=== PATIENT | male | born 1950 | race Caucasian/White ===

== ENCOUNTER 2016-11-16 07:13 | Inpatient (IN) | payer OTHER, MEDICARE ==
[2016-11-16] VITALS (24 sets, daily range): BP systolic 84–140; BP diastolic 55–88; PULSE 128–169; RESP 16–45; TEMP 97.8–98.8; O2SAT 75–98
[~2016-11-16] VITALS: Ht 175.3 cm; Wt 53.4 kg
[~2016-11-16 07:13] MED LIST: ALBU6.7H INH; ASMA220A IN; CHEMO MEDS; FOLI1 PO; LOSA50 PO; OXYC5 PO; PARO10TA
[2016-11-16] MEDS ORDERED: SODIUM CHLOR 0.9% 1000 ML INJ 1,000 ML IV ONE (07:35)
--- NOTE | 2016-11-16 07:43 | PD ---
HPI Chief Complaint: GI Complaint Time Seen by Provider: 07:35 Travel History International Travel<30 days: No Contact w/Intl Traveler<30days: No Traveled to known affect area: No History of Present Illness HPI This is a 66-year-old gentleman with a history of pancreatic cancer, COPD, who presents today via EMS with coffee-ground emesis times several episodes over the last 12 hours. The patient also reports abdominal pain. He states that he started feeling nauseous with the pain and shortly thereafter started vomiting black coffee-ground emesis. He denies any black tarry stools. He does report he has a history of previous peptic ulcer. He's been treated with chemotherapy and radiation to her before his pancreatic cancer. His oncologist is Dr. Bigg Kelly. The patient also reports cough. He denies any fevers, chills. He does report feeling nauseous still and feeling urge to belch. PFSH Past Medical History Depression: Yes Cancer: Yes (SKIN, PANCREATIC ) Cardiovascular Problems: Yes (HTN) Chemotherapy: Yes COPD: Yes Diabetes: No Diminished Hearing: No Hypertension: Yes Implanted Vascular Access Dvce: No Respiratory: Yes Radiation Therapy: Yes Tetanus Vaccination: < 5 Years Influenza Vaccination: No Past Surgical History Surgical History: No Previous Surgery Abdominal Surgery: Yes (HERNIA REPAIR) Cardiac Surgery: No Neurologic Surgery: No Pacemaker: No Thoracic Surgery: No Tonsillectomy: Yes Other Surgery: Yes (SKIN CA REMOVED) Social History Alcohol Use: No Tobacco Use: Yes (1PPD) Substance Use: No Allergies-Medications (Allergen,Severity, Reaction): Coded Allergies: No Known Allergies (Verified , 11/16/16) Reported Meds & Prescriptions Reported Meds & Active Scripts Active Reported Paxil (Paroxetine HCl) Unknown Strength Tab 1 Tab PO DAILY Roxicodone (Oxycodone HCl) 5 Mg Tab 5 Mg PO Q6H PRN Asmanex 120 Act Twisthaler (Mometasone 120 Act Inh) 220 Mcg/Act Inh 1 Puff INH BID Losartan (Losartan Potassium) 50 Mg Tab 50 Mg PO DAILY Folate (Folic Acid) 1 Mg Tab 1 Mg PO DAILY Proventil Hfa 6.7 GM Inh (Albuterol Sulfate) 90 Mcg/Act Aer 1-2 Puff INH Q4H PRN [Iv Chemo Meds] Review of Systems Except as stated in HPI: all other systems reviewed are Neg General / Constitutional: No: Fever, Chills HENT: No: Lightheadedness Cardiovascular: No: Chest Pain or Discomfort, Palpitations Respiratory: Positive: Cough, Shortness of Breath Gastrointestinal: Positive: Nausea, Vomiting (chronic), Abdominal Pain ( epigastric), Hematemesis (coffee-ground emesis) Genitourinary: No: Decreased Urinary Output Musculoskeletal: Positive: Weakness (Katarzyna) Neurologic: Positive: Weakness (generalized), No: Headache, Change in Mentation Psychiatric: Positive: Other (history of PTSD) Physical Exam Narrative GENERAL: Thin cachectic ill appearing gentleman in no acute respiratory distress SKIN: Warm and dry. HEAD: Atraumatic. Normocephalic. EYES: No scleral icterus. No injection or drainage. ENT: No nasal bleeding or discharge. Dry and pale this membranes. NECK: Trachea midline. Supple CARDIOVASCULAR: Tachycardic with a rate in the 130s. No obvious murmur appreciated. RESPIRATORY: Poor inspiratory effort with rhonchi appreciated in the upper airways. GASTROINTESTINAL: Abdomen soft, thin, cachectic with tenderness in the epigastric area. There was mild voluntary guarding with no rebound. MUSCULOSKELETAL: No obvious deformities. No edema NEUROLOGICAL: Awake and alert. No obvious cranial nerve deficits. Motor grossly within normal limits. Normal speech. Data Data Last Documented VS Vital Signs Date Time Temp Pulse Resp B/P Pulse Ox O2 Delivery O2 Flow Rate FiO2 11/16/16 09:50 97.8 138 109/78 85 Nasal Cannula 2 11/16/16 09:46 18 Orders Electrocardiogram (11/16/16 ) Complete Blood Count With Diff (11/16/16 07:35) Comprehensive Metabolic Panel (11/16/16 07:35) Urinalysis - C+S If Indicated (11/16/16 07:35) Lipase (11/16/16 07:35) Iv Access Insert/Monitor (11/16/16 07:35) Ecg Monitoring (11/16/16 07:35) Oximetry (11/16/16 07:35) Ondansetron Inj (Zofran Inj) (11/16/16 07:45) Pantoprazole Inj (Protonix Inj) (11/16/16 07:45) Sodium Chlor 0.9% 1000 Ml Inj (Ns 1000 M (11/16/16 07:35) Sodium Chloride 0.9% Flush (Ns Flush) (11/16/16 07:45) Abdomen, Upright Only (11/16/16 07:35) Chest, Single Ap (11/16/16 07:35) Hydromorphone Pf Inj (Dilaudid Pf Inj) (11/16/16 07:45) Insert Ng Tube (11/16/16 07:35) Type And Screen (11/16/16 07:44) Red Blood Cells (Rbc) (11/16/16 07:44) Admit Order (Ed Use Only) (11/16/16 09:57) Blood Product Administration .UPON TRANSFUSION (11/16/16 09:59) Labs Laboratory Tests Test 11/16/16 07:25 White Blood Count 5.6 TH/MM3 Red Blood Count 2.78 MIL/MM3 Hemoglobin 8.8 GM/DL Hematocrit 26.4 % Mean Corpuscular Volume 94.7 FL Mean Corpuscular Hemoglobin 31.6 PG Mean Corpuscular Hemoglobin 33.4 % Concent Red Cell Distribution Width 18.5 % Platelet Count 199 TH/MM3 Mean Platelet Volume 9.5 FL Neutrophils (%) (Auto) 90.5 % Lymphocytes (%) (Auto) 3.0 % Monocytes (%) (Auto) 6.1 % Eosinophils (%) (Auto) 0.0 % Basophils (%) (Auto) 0.4 % Neutrophils # (Auto) 5.1 TH/MM3 Lymphocytes # (Auto) 0.2 TH/MM3 Monocytes # (Auto) 0.3 TH/MM3 Eosinophils # (Auto) 0.0 TH/MM3 Basophils # (Auto) 0.0 TH/MM3 CBC Comment DIFF FINAL Differential Comment Sodium Level 139 MEQ/L Potassium Level 4.1 MEQ/L Chloride Level 95 MEQ/L Carbon Dioxide Level 33.4 MEQ/L Anion Gap 11 MEQ/L Blood Urea Nitrogen 34 MG/DL Creatinine 1.10 MG/DL Estimat Glomerular Filtration 67 ML/MIN Rate Random Glucose 185 MG/DL Calcium Level 8.2 MG/DL Total Bilirubin 0.8 MG/DL Aspartate Amino Transf 17 U/L (AST/SGOT) Alanine Aminotransferase 15 U/L (ALT/SGPT) Alkaline Phosphatase 129 U/L Total Protein 5.5 GM/DL Albumin 2.5 GM/DL Lipase 20 U/L Blood Type A POSITIVE Antibody Screen NEGATIVE Crossmatch Leukocyte-Reduced Red Blood Cells Blood Bank Comment MDM Medical Decision Making Medical Screen Exam Complete: Yes Emergency Medical Condition: Yes Differential Diagnosis Peptic ulcer versus pancreatic erosion into the stomach versus esophageal varices Narrative Course 66-year-old gentleman with history of pancreatic cancer, presents via EMS with coffee-ground emesis. The patient has had multiple episodes of vomiting with coffee-ground emesis. The patient appears pale and ill appearing. He will was 8.8. Patient has been typed and crossed for 2 units. We have started transfusing the blood. The patient be admitted to the resident service. He has been given Protonix 40 mg I V times one dose. Diagnosis Primary Impression: Upper GI bleed Additional Impressions: Anemia Pancreatic cancer Constantine Mcbride MD Nov 16, 2016 07:43
[2016-11-16] MEDS ORDERED: SODIUM CHLORIDE 0.9% FLUSH 5 ML FLUSH IVF PRN (07:45)
[2016-11-16] MEDS ORDERED: ONDANSETRON HCL 4 MG/2 ML VIAL IVP ONE (07:45)
[2016-11-16] MEDS ORDERED: PANTOPRAZOLE SODIUM 40 MG VIAL IVP ONE (07:45)
[2016-11-16] MEDS ORDERED: HYDROmorphone HCL PF 1 MG/ML VIAL IVS ONE (07:45)
[2016-11-16 08:02] LABS: AUTOMATED NEUTROPHIL # 5.1 TH/MM3 (1.8-7.7); BASOPHIL % 0.4 % (0.0-2.0); HEMATOCRIT 26.4 % (39.0-51.0); HEMO FLAGS DIFF FINAL; LYMPHOCYTE # 0.2 TH/MM3 (1.0-4.8); MEAN CELL VOLUME 94.7 FL (80.0-100.0); MEAN CORPUSCULAR HEMOGLOBIN 31.6 PG (27.0-34.0); MEAN CORPUSCULAR HGB CONC 33.4 % (32.0-36.0); MONO % 6.1 % (0.0-8.0); NEUT % 90.5 % (16.0-70.0); PLATELET COUNT 199 TH/MM3 (150-450); RED BLOOD COUNT 2.78 MIL/MM3 (4.50-5.90); RED CELL DISTRIBUTION WIDTH 18.5 % (11.6-17.2); WHITE BLOOD COUNT 5.6 TH/MM3 (4.0-11.0)
[2016-11-16 08:21] LABS: ALT (GPT) 15 U/L (12-78); ANION GAP 11 MEQ/L (5-15); AST (GOT) 17 U/L (15-37); BICARBONATE 33.4 MEQ/L (21.0-32.0); BLOOD UREA NITROGEN 34 MG/DL (7-18); CHLORIDE 95 MEQ/L (98-107); GLOMERULAR FILTRATION RATE 67 ML/MIN (>89); POTASSIUM 4.1 MEQ/L (3.5-5.1); SODIUM (NA) 139 MEQ/L (136-145)
[2016-11-16 08:23] LABS: ALKALINE PHOSPHATASE 129 U/L (45-117); TOTAL BILIRUBIN ADULT 0.8 MG/DL (0.2-1.0)
--- NOTE | 2016-11-16 08:42 | RADRPT ---
EXAM DATE/TIME: 11/16/2016 08:03 [facility] COMPARISON: CHEST SINGLE AP, July 02, 2015, 14:24. INDICATIONS : Cough MEDICAL HISTORY : Chronic obstructive pulmonary disease. SURGICAL HISTORY : None. ENCOUNTER: Initial ACUITY: >1 year PAIN SCORE: 3/10 LOCATION: Bilateral chest FINDINGS: Single AP view of the chest. The lungs are clear. Cardiomediastinal silhouette within normal limits. No evidence of pleural effusion or pneumothorax. CONCLUSION: No acute cardiopulmonary disease identified. Sae Griffith MD on November 16, 2016 at 8:39 Board Certified Radiologist. This report was verified electronically.
--- NOTE | 2016-11-16 08:51 | RADRPT ---
EXAM DATE/TIME: 11/16/2016 08:05 [facility] COMPARISON: CHEST SINGLE AP, November 16, 2016, 8:03. INDICATIONS : Cough MEDICAL HISTORY : Chronic obstructive pulmonary disease. SURGICAL HISTORY : None. ENCOUNTER: Initial ACUITY: >1 year PAIN SCORE: 0/10 LOCATION: Abdomen FINDINGS: A single erect view of the abdomen demonstrates the lower lungs to be clear. No evidence of free int raperitoneal gas. The visualized bowel loops are unremarkable. CONCLUSION: No evidence of free air. Sae Griffith MD on November 16, 2016 at 8:49 Board Certified Radiologist. This report was verified electronically.
[2016-11-16] MEDS ORDERED: OXYC1TAB13 PO (09:01)
[2016-11-16] MEDS ORDERED: FOLI1TAB4 PO (09:01)
[2016-11-16] MEDS ORDERED: LOSA50TA PO (09:01)
[2016-11-16] MEDS ORDERED: ALBU6.7H INH (09:01)
[2016-11-16] MEDS ORDERED: ASMA220A INH (09:01)
[2016-11-16] MEDS ORDERED: PAXI10TA2 PO (09:01)
--- NOTE | 2016-11-16 10:21 | HHI.HP ---
[facility] Service Family Medicine [facility] Diagnosis upper gi bleed, pancreatic cancer, anemia Diagnoses: International Travel<30 Days: No Contact w/Intl Traveler<30days: No Known Affected Area: No History of Present Illness Mr. Ramsey is a 66 y/o CM with a PMHx of stage 4 pancreatic cancer, COPD, GERD and PTSD presenting to the ER with bloody vomiting. He is accompanied by his and daughter who assists with history. Over the last 2 weeks patient has had intermittent episodes of nausea and vomiting. Over the last week his emesis started to have a blood tinge and grainier consistency. Over the last 24 hours he's had more than 6 episodes of bloody vomiting which prompted his visit to the ER. He has had upper right quadrant ABD since his diagnosis of pancreatic cancer, however over the last few weeks he believes that his pain has been much worse. At home he takes Roxicodone and uses a fentanyl patch with instructions from his oncologist, Dr. Kelly, to double the Roxicodone dose with increasing pain. Unfortunately since doubling his Roxicodone dose his pain has not been alleviated. He was diagnosed with stage 4 pancreatic cancer in 2014. He completed 28 radiation treatments over a year ago with continued chemotherapy. His last chemotherapy treatment was approximately 3 weeks ago, but currently is not receiving treatment. His only other complaints over this timeframe are subjective fevers and chills. Of note, hospice was recommended last week, however the patient and his family decided against it went to hold he would not receive a blood transfusion on their service. Currently he has no other complaints and denies any shortness of breath, chest pain, diarrhea, or calf tenderness. Review of Systems Constitutional: COMPLAINS OF: Fever (subjective), Chills Endocrine: DENIES: Polyuria Eyes: DENIES: Blurred vision Ears, nose, mouth, throat: COMPLAINS OF: Throat pain, DENIES: Running Nose Respiratory: COMPLAINS OF: Shortness of breath, DENIES: Cough Cardiovascular: DENIES: Chest pain Gastrointestinal: COMPLAINS OF: Abdominal pain, Nausea, Vomiting, DENIES: Black stools, Bloody stools, Diarrhea Genitourinary: DENIES: Dysuria Musculoskeletal: DENIES: Joint pain Integumentary: DENIES: Rash Hematologic/lymphatic: DENIES: Lymphadenopathy Immunologic/allergic: DENIES: Urticaria Neurologic: DENIES: Headache Psychiatric: DENIES: Mood changes Past Family Social History Past Medical History COPD GERD Alcohol abuse PTSD Tobacco dependence History of basal cell carcinoma the skin Pancreatic cancer - chemotherapy with radiation Past Surgical History Umbilical hernia repair Excision of basal cell carcinoma ERCP with stent placement Hand surgery after trauma many years ago Reported Medications Reported Meds & Active Scripts Active Reported Paxil (Paroxetine HCl) Unknown Strength Tab 1 Tab PO DAILY Roxicodone (Oxycodone HCl) 5 Mg Tab 5 Mg PO Q6H PRN Asmanex 120 Act Twisthaler (Mometasone 120 Act Inh) 220 Mcg/Act Inh 1 Puff INH BID Losartan (Losartan Potassium) 50 Mg Tab 50 Mg PO DAILY Folate (Folic Acid) 1 Mg Tab 1 Mg PO DAILY Proventil Hfa 6.7 GM Inh (Albuterol Sulfate) 90 Mcg/Act Aer 1-2 Puff INH Q4H PRN [Iv Chemo Meds] Allergies: Coded Allergies: No Known Allergies (Verified , 11/16/16) Active Ordered Medications Inpatient Medications Hydromorphone HCl (Dilaudid Pf Inj) 1 mg ONCE ONCE IVS Last administered on 07:47; Start 11/16/16 at 07:45; Stop 11/16/16 at 07:46; Status DC IV Flush (NS Flush) 2 ml UNSCH PRN IVF FLUSH AFTER USING IV ACCESS; Start 11/16 at 07:45 Ondansetron HCl (Zofran Inj) 4 mg ONCE ONCE IVP Last administered on 07:47; Start 11/16/16 at 07:45; Stop 11/16/16 at 07:46; Status DC Pantoprazole Sodium 40 mg 40 mg ONCE ONCE IVP Last administered on 11/16/16 07:46; Start 11/16/16 at 07:45; Stop 11/16/16 at 07:46; Status DC Sodium Chloride (NS 1000 ml Inj) 1,000 ml @ 125 mls/hr Q8H ONCE IV Last administered on 11/16/16 07:47; Start 11/16/16 at 07:35; Stop 11/16/16 at 15:34 Family History Father passed way from [place] Mother passed with for [place] Brother passed with from, patient due to colon cancer Social History Live is [place] with significant other. Served in [employer]. Currently with Veterans insurance and [facility] PCP. Alcohol - prior abuse, sober since 2015 Smoke - 1 ppd for >40 years Illicit - denies Physical Exam Vital Signs Vital Signs Date Time Temp Pulse Resp B/P Pulse Ox O2 Delivery O2 Flow Rate FiO2 11/16/16 09:50 97.8 138 109/78 85 Nasal Cannula 2 11/16/16 09:46 97.8 134 18 101/75 95 Nasal Cannula 2 11/16/16 09:34 97.8 132 18 99/73 82 Nasal Cannula 2 11/16/16 08:37 145 23 91/66 Nasal Cannula 2 11/16/16 07:19 97.9 139 24 84/59 Room Air 11/16/16 07:19 97.9 139 24 84/59 Physical Exam GENERAL: Elderly, cachectic male lying in bed in no acute distress, but decreased arousability. SKIN: Cool and dry. Pale appearing. HEENT: Atraumatic, normocephalic with EOMI. PERRLA without injection or scleral icterus. Oropharynx clear without erythema or tonsillar exudates. Noted black residue on patient's tongue likely due to previous episodes of emesis. Mucous membranes dry. NG tube in place at right nares. No rhinorrhea. Palpable tender cervical lymphadenopathy bilaterally. CARDIOVASCULAR: Regular rate and rhythm without murmurs, gallops, or rubs. RESPIRATORY: Clear to auscultation bilaterally with no CRW. Mild increase in work of breathing of which patient states is his baseline. GASTROINTESTINAL: Abdomen soft, mildly tender to palpation with positive bowel sounds. No masses appreciated. MUSCULOSKELETAL: Extremities without cyanosis or edema. No calf tenderness. NEUROLOGICAL: When arousable, patient is AAO x3. Cranial nerves II through XII intact. Motor and sensory grossly within normal limits. Normal, but slowed speech. Laboratory Laboratory Tests Test 11/16/16 07:25 White Blood Count 5.6 Red Blood Count 2.78 Hemoglobin 8.8 Hematocrit 26.4 Mean Corpuscular Volume 94.7 Mean Corpuscular Hemoglobin 31.6 Mean Corpuscular Hemoglobin 33.4 Concent Red Cell Distribution Width 18.5 Platelet Count 199 Mean Platelet Volume 9.5 Neutrophils (%) (Auto) 90.5 Lymphocytes (%) (Auto) 3.0 Monocytes (%) (Auto) 6.1 Eosinophils (%) (Auto) 0.0 Basophils (%) (Auto) 0.4 Neutrophils # (Auto) 5.1 Lymphocytes # (Auto) 0.2 Monocytes # (Auto) 0.3 Eosinophils # (Auto) 0.0 Basophils # (Auto) 0.0 CBC Comment DIFF FINAL Differential Comment Sodium Level 139 Potassium Level 4.1 Chloride Level 95 Carbon Dioxide Level 33.4 Anion Gap 11 Blood Urea Nitrogen 34 Creatinine 1.10 Estimat Glomerular Filtration 67 Rate Random Glucose 185 Calcium Level 8.2 Total Bilirubin 0.8 Aspartate Amino Transf 17 (AST/SGOT) Alanine Aminotransferase 15 (ALT/SGPT) Alkaline Phosphatase 129 Total Protein 5.5 Albumin 2.5 Lipase 20 Blood Type A POSITIVE Antibody Screen NEGATIVE Crossmatch Leukocyte-Reduced Red Blood Cells Blood Bank Comment Result Diagram: 11/16/1672411/16/16724 Assessment and Plan Assessment and Plan Mr. Ramsey is a 66 y/o CM with a PMHx of stage 4 pancreatic cancer, COPD, GERD and PTSD admitted for suspected upper GI bleed. Code Status DNR At the time of my interview, the patient and his family stated that he was full code to myself and the ER staff. Since that time he has notified the medical staff that he would like to be DNR, and the appropriate orders were placed. Discussed Condition With Dr. Mcbride, ER Physician Dr. Derek Sauer Problem List: (1) Upper GI bleed Status: Acute Plan: Patient admitted for suspected GI bleed after multiple episodes of bloody coffee-ground emesis leading to symptomatic anemia. Patient currently receiving 2 units of transfused packed red blood cells. Team will consult GI for further recommendations and possible endoscopic evaluation. Abdominal x-ray: No evidence of free air CT abdomen with contrast to evaluate malignancy and possible metastasis CBC: WBC 5.6, H/H 8.8/26.4, platelets 199 H/H to be trended every 6 hours posttransfusion CMP: Chloride 95, carbon dioxide 33, BU when 34, glucose 185, alkaline phosphatase 129, total protein 5.5, albumin 2.5 Lipase: 20 PT: 14.2, INR 1.3, PTT 31.5 UA: Pending Type and screen for 2 PRBC due to symptomatic anemia Protonix 40 mg IV twice a day Consult gastroenterology, and recommendations appreciated (2) Intractable vomiting Status: Acute Plan: Please see plan as above (3) Decreased oral intake Status: Acute Plan: Please see plan as above (4) Anemia Status: Acute Plan: Please see plan as above (5) Pancreatic cancer Status: Chronic Plan: Patient was diagnosed stage IV pancreatic cancer complaining of neck and abdominal pain with palpable cervical lymphadenopathy. Currently he has chemotherapy has been discontinued with his last treatment approximately 3 weeks ago. He has completed 28 radiation treatments over one year ago. His oncologist is Dr. Kelly. Hold home dose Roxicodone Dilaudid 0.5 mg every 4 hours when necessary for pain 5-10 with Dilaudid 1 mg when necessary for breakthrough pain every [address] neck and abdomen to evaluate for possible metastasis of pancreatic cancer (6) COPD (chronic obstructive pulmonary disease) Status: Chronic Plan: Patient with diagnosis of COPD Chest x-ray: No acute cardiopulmonary disease Continue home Asmanex and albuterol breathing treatments (7) GERD (gastroesophageal reflux disease) Status: Acute Plan: Patient with history of GERD Please see plan as above (8) Nutrition, metabolism, and development symptoms Status: Acute Plan: Fluids: Normal saline at 100 mL/h (maintenance fluids) post-transfusion as he is NPO and appears dehydrated Diet: NPO DVT prophylaxis: SCD/TEDs as medical prophylaxis appropriate with GI bleed Electrolytes: Continue to monitor Physician Certification 2 Midnight Certification Type: Admission for Inpatient Services Order for Inpatient Services The services are ordered in accordance with Medicare regulations or non- Medicare payer requirements, as applicable. In the case of services not specified as inpatient-only, they are appropriately provided as inpatient services in accordance with the 2-midnight benchmark. Estimated LOS (days): 3 3 days is the estimated time the patient will need to remain in the hospital, assuming treatment plan goals are met and no additional complications. Post-Hospital Plan: Home Problem Qualifiers (1) Intractable vomiting: Markell Monahan MD R1 Nov 16, 2016 10:21
[2016-11-16] MEDS ORDERED: SODIUM CHLORIDE 0.9% FLUSH 5 ML FLUSH FLUSH PRN (11:30)
[2016-11-16] MEDS ORDERED: SODIUM CHLOR 0.9% 1000 ML INJ 1,000 ML IV SCH (12:00)
[2016-11-16] MEDS: SODIUM CHLORIDE 0.9% FLUSH 5 ML FLUSH FLUSH SCH ×2 (12:02→20:59)
[2016-11-16] MEDS ORDERED: HYDROmorphone HCL PF 1 MG/ML VIAL IV PUSH PRN ×2 (13:15→17:45)
[2016-11-16] MEDS ORDERED: ALBUTEROL SULFATE 90 MCG/ACT HFA 8 GM INHALER INH PRN (14:00)
--- NOTE | 2016-11-16 14:16 | PD.CONS ---
HPI History of Present Illness This is a 66 year old male patient with Pancreatic Cancer, diagnosed in 2014. He is followed by Dr. Kelly. According to the note, this is Stage III although the daughter reports that this is Stage IV. The patient is extremely lethargic and unable to provide any history and therefore the history has been obtained from the and daughter who are at the bedside. The family reports that he completed 28 treatments of radiation. He was receiving chemotherapy up until 3 weeks ago. His family reports that he was taken off chemotherapy 3 weeks ago and the plan was to "see how he did." The reports that he has been having intermittent nausea/vomiting for several weeks and started vomited blood about 1 weeks ago. They do not mention any rectal bleeding. He does have chronic abdominal pain related to his cancer and takes Oxycodone and a Fentanyl Patch at home. He is not able to describe this pain. He does report that this usually helps for his pain at home. He currently has an NGT to LIWS with coffee ground gastric secretions. Of note, the patient's and daughter report that Hospice was recommended last week, but when they came they said that they could not give blood and therefore they would send him to the hospital. However, they state that if anything were to happen as far as if his heart were to stop beating or if he stopped breathing, they WOULD NOT WANT CPR or INTUBATION WITH MECHANICAL VENTILATION. (Marielos Leung) PFSH Past Medical History Advanced pancreatic cancer COPD GERD PTSD Basal cell carcinoma Past Surgical History Umbilical hernia repair Excision of basal cell carcinoma ERCP with stent placement Hand surgery (Marielos Leung) Coded Allergies: No Known Allergies (Verified , 11/16/16) Medications Allergies Coded Allergies Type Severity Reaction Last Updated Verified No Known Allergies 11/16/16 Yes Active Scripts Medications Dose Route/Sig Days Date Category Paxil (Paroxetine HCl) Unknown Strength Tab 1 Tab PO DAILY 11/16/16 Reported Roxicodone (Oxycodone HCl) 5 Mg Tab 5 Mg PO Q6H PRN 11/16/16 Reported Asmanex 120 Act Twisthaler (Mometasone 120 Act Inh) 220 Mcg/Act Inh 1 Puff INH BID 11/16/16 Reported Losartan (Losartan Potassium) 50 Mg Tab 50 Mg PO DAILY 11/16/16 Reported Folate (Folic Acid) 1 Mg Tab 1 Mg PO DAILY 11/16/16 Reported Proventil Hfa 6.7 GM Inh (Albuterol Sulfate) 90 Mcg/Act Aer 1-2 Puff INH Q4H PRN 11/16/16 Reported [Iv Chemo Meds] 07/12/16 Reported Family History Mother and father passed from [place], Brother had colon cancer. Social History Quit drinking in 2016. Smoked 1ppd > 40 years. (Marielos Leung) Review of Systems Constitutional: COMPLAINS OF: Fatigue, Weight loss, Change in appetite, DENIES : Fever Respiratory: COMPLAINS OF: Cough, Sputum production, Shortness of breath Cardiovascular: DENIES: Chest pain Gastrointestinal: COMPLAINS OF: Abdominal pain, Nausea, Vomiting, Hematemesis Musculoskeletal: DENIES: Joint pain Integumentary: DENIES: Abnormal pigmentation Hematologic/lymphatic: DENIES: Bruising Psychiatric: DENIES: Confusion (lethargy) (Marielos Leung) GI Exam Vitals I&O Vital Signs Date Time Temp Pulse Resp B/P Pulse Ox O2 Delivery O2 Flow Rate FiO2 11/16/16 13:31 98.8 133 20 140/88 92 11/16/16 13:30 98.8 134 21 140/88 91 Nasal Cannula 2 11/16/16 13:08 98.8 133 20 124/88 92 Room Air 2 11/16/16 13:08 98.8 134 124/88 91 Room Air 2 11/16/16 12:35 133 19 98/77 90 Room Air 11/16/16 12:00 132 17 111/75 92 Nasal Cannula 2 11/16/16 11:00 128 18 100/67 90 Nasal Cannula 2 11/16/16 10:30 138 16 104/71 90 Nasal Cannula 2 11/16/16 09:50 97.8 138 109/78 85 Nasal Cannula 2 11/16/16 09:46 97.8 134 18 101/75 95 Nasal Cannula 2 11/16/16 09:34 97.8 132 18 99/73 82 Nasal Cannula 2 11/16/16 08:37 145 23 91/66 Nasal Cannula 2 11/16/16 07:19 97.9 139 24 84/59 Room Air 11/16/16 07:19 97.9 139 24 84/59 I/O 11/15/16 11/15/16 11/15/16 11/16/1619/17 2/19/17 07:00 15:00 23:00 07:00 15:00 23:00 Intake Total 500 ml Output Total 2450 ml Balance -1950 ml Intake Packed Cells 500 ml Output Gastric Drainage Total 2150 ml Emesis 300 ml Imaging Last Impressions Chest X-Ray 11/16/16734 Signed Impressions: Service Date/Time: Wednesday, November 16, 2016 08:03 - CONCLUSION: No acute cardiopulmonary disease identified. Sae Griffith MD Abdomen X-Ray 11/16/16734 Signed Impressions: Service Date/Time: Wednesday, November 16, 2016 08:05 - CONCLUSION: No evidence of free air. Sae Griffith MD Laboratory Test 11/16/16 07:25 White Blood Count 5.6 TH/MM3 Red Blood Count 2.78 MIL/MM3 Hemoglobin 8.8 GM/DL Hematocrit 26.4 % Mean Corpuscular Volume 94.7 FL Mean Corpuscular Hemoglobin 31.6 PG Mean Corpuscular Hemoglobin 33.4 % Concent Red Cell Distribution Width 18.5 % Platelet Count 199 TH/MM3 Mean Platelet Volume 9.5 FL Neutrophils (%) (Auto) 90.5 % Lymphocytes (%) (Auto) 3.0 % Monocytes (%) (Auto) 6.1 % Eosinophils (%) (Auto) 0.0 % Basophils (%) (Auto) 0.4 % Neutrophils # (Auto) 5.1 TH/MM3 Lymphocytes # (Auto) 0.2 TH/MM3 Monocytes # (Auto) 0.3 TH/MM3 Eosinophils # (Auto) 0.0 TH/MM3 Basophils # (Auto) 0.0 TH/MM3 CBC Comment DIFF FINAL Differential Comment Sodium Level 139 MEQ/L Potassium Level 4.1 MEQ/L Chloride Level 95 MEQ/L Carbon Dioxide Level 33.4 MEQ/L Anion Gap 11 MEQ/L Blood Urea Nitrogen 34 MG/DL Creatinine 1.10 MG/DL Estimat Glomerular Filtration 67 ML/MIN Rate Random Glucose 185 MG/DL Calcium Level 8.2 MG/DL Total Bilirubin 0.8 MG/DL Aspartate Amino Transf 17 U/L (AST/SGOT) Alanine Aminotransferase 15 U/L (ALT/SGPT) Alkaline Phosphatase 129 U/L Total Protein 5.5 GM/DL Albumin 2.5 GM/DL Lipase 20 U/L Blood Type A POSITIVE Antibody Screen NEGATIVE Crossmatch Leukocyte-Reduced Red Blood Cells Blood Bank Comment Physical Examination HEENT: Pupils round and reactive to light; normocephalic; atraumatic; no jaundice. CHEST: Resp shallow, mildly labored. Diminished, scattered rhonchi CARDIAC: Regular, tachycardic ABDOMEN: Soft, nondistended, mild to mod diffuse tenderness; no hepatosplenomegaly; bowel sounds are present in all four quadrants. EXTREMITIES: No clubbing, cyanosis, or edema. 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 (Marielos Leung) Assessment and Plan Plan ASSESSMENT: - GIB, Coffee ground gastric secretions. Pt's reports that he has been vomiting for several weeks, but that he recently started having the coffee ground emesis about 1 week ago. NGT was placed to LIWS, 2L of blackish colored gastric secretions out. HH 8.8/26.4. Getting 2 units of PRBC. Protonix with BID dosing. Pt tachycardic with labored breathing, not stable for any GI procedure at this time. - Anemia, acute blood loss. HH 8.8/26.4. Getting 2 units PRBC. - Advanced pancreatic cancer. Dx in 2015. Followed by Dr. Kelly. The family reports that he completed 28 treatments of radiation. He was receiving chemotherapy up until 3 weeks ago. His family reports that he was taken off chemotherapy 3 weeks ago and the plan was to "see how he did." Patient's and daughter report that Hospice was recommended last week, but when they came they said that they could not give blood and therefore they decided to send him to the hospital. However, they state that if anything were to happen as far as if his heart were to stop beating or if he stopped breathing, they WOULD NOT WANT CPR or INTUBATION WITH MECHANICAL VENTILATION - notified attending. - COPD, PTSD, per primary PLAN: - NPO - NGT to LIWS - Cont. Protonix with BID dosing - Monitor HH - Transfuse as necessary - Pt is not stable at this time for endoscopic evaluation. Will hold off on procedures until he is more stable unless there is obvious active bleeding with sarah red bleeding. - Supportive care - Further recommendations to follow based on results of above - Pt seen and examined by Dr. Dumont and myself and this note is written on her behalf (Marielos Leung) Physician Comments seen, examined agree with above we will try to obtain records from [facility] (Tess Dumont MD) Marielos Leung Nov 16, 2016 14:16 Tess Dumont MD Nov 16, 2016 18:30
--- NOTE | 2016-11-16 15:18 | HHI.FPPN ---
Subjective Remarks Patient seen and examined, discussed with the medicine team. This is a 66-year-old male with known stage IV pancreatic cancer, patient of Dr. Bigg Kelly, who presented to the emergency department with a history of 5 days of bloody emesis. He had been vomiting for a week, and also was experiencing abdominal pain. He had finished a course of radiation and last chemotherapy was August 2016. He presented because of the vomiting and abdominal pain. Please see history and physical examination for this admission for additional past, family, social history and review of systems. Mother and sister are in the room, they are conflicted as the oncologist most familiar with this patient does not come to this hospital. They have indicated that other than for blood, the want to indicate that this patient is DO NOT RESUSCITATE, and they agreed that they do not want intubation, chest compressions, defibrillator. Objective Vitals Vital Signs Date Time Temp Pulse Resp B/P Pulse Ox O2 Delivery O2 Flow Rate FiO2 11/16/16 13:31 98.8 133 20 140/88 92 11/16/16 13:30 98.8 134 21 140/88 91 Nasal Cannula 2 11/16/16 13:08 98.8 133 20 124/88 92 Room Air 2 11/16/16 13:08 98.8 134 124/88 91 Room Air 2 11/16/16 12:35 133 19 98/77 90 Room Air 11/16/16 12:00 132 17 111/75 92 Nasal Cannula 2 11/16/16 11:00 128 18 100/67 90 Nasal Cannula 2 11/16/16 10:30 138 16 104/71 90 Nasal Cannula 2 11/16/16 09:50 97.8 138 109/78 85 Nasal Cannula 2 11/16/16 09:46 97.8 134 18 101/75 95 Nasal Cannula 2 11/16/16 09:34 97.8 132 18 99/73 82 Nasal Cannula 2 11/16/16 08:37 145 23 91/66 Nasal Cannula 2 11/16/16 07:19 97.9 139 24 84/59 Room Air 11/16/16 07:19 97.9 139 24 84/59 I/O 11/15/16 11/15/16 11/15/16 11/16/16 11/16/16 11/16/16 07:00 15:00 23:00 07:00 15:00 23:00 Intake Total 500 ml Output Total 2450 ml Balance -1950 ml Intake Packed Cells 500 ml Output Gastric Drainage Total 2150 ml Emesis 300 ml Result Diagram: 11/16/1672411/16/16724 Other Results Laboratory Tests Test 11/16/16 07:25 White Blood Count 5.6 TH/MM3 Red Blood Count 2.78 MIL/MM3 Hemoglobin 8.8 GM/DL Hematocrit 26.4 % Mean Corpuscular Volume 94.7 FL Mean Corpuscular Hemoglobin 31.6 PG Mean Corpuscular Hemoglobin 33.4 % Concent Red Cell Distribution Width 18.5 % Platelet Count 199 TH/MM3 Mean Platelet Volume 9.5 FL Neutrophils (%) (Auto) 90.5 % Lymphocytes (%) (Auto) 3.0 % Monocytes (%) (Auto) 6.1 % Eosinophils (%) (Auto) 0.0 % Basophils (%) (Auto) 0.4 % Neutrophils # (Auto) 5.1 TH/MM3 Lymphocytes # (Auto) 0.2 TH/MM3 Monocytes # (Auto) 0.3 TH/MM3 Eosinophils # (Auto) 0.0 TH/MM3 Basophils # (Auto) 0.0 TH/MM3 CBC Comment DIFF FINAL Differential Comment Sodium Level 139 MEQ/L Potassium Level 4.1 MEQ/L Chloride Level 95 MEQ/L Carbon Dioxide Level 33.4 MEQ/L Anion Gap 11 MEQ/L Blood Urea Nitrogen 34 MG/DL Creatinine 1.10 MG/DL Estimat Glomerular Filtration 67 ML/MIN Rate Random Glucose 185 MG/DL Calcium Level 8.2 MG/DL Total Bilirubin 0.8 MG/DL Aspartate Amino Transf 17 U/L (AST/SGOT) Alanine Aminotransferase 15 U/L (ALT/SGPT) Alkaline Phosphatase 129 U/L Total Protein 5.5 GM/DL Albumin 2.5 GM/DL Lipase 20 U/L Blood Type A POSITIVE Antibody Screen NEGATIVE Crossmatch Leukocyte-Reduced Red Blood Cells Blood Bank Comment Imaging Last Impressions Chest X-Ray 11/16/16734 Signed Impressions: Service Date/Time: Wednesday, November 16, 2016 08:03 - CONCLUSION: No acute cardiopulmonary disease identified. Sae Griffith MD Abdomen X-Ray 11/16/16734 Signed Impressions: Service Date/Time: Wednesday, November 16, 2016 08:05 - CONCLUSION: No evidence of free air. Sae Griffith MD Objective Remarks Patient has NG tube in place, initially obtained some blood-tinged fluid but now the fluid is light brown with flecks of what appear to be old digested blood. Initially he was vented for 2.5 L of stomach contents. O. CONSTITUTIONAL/GEN: Pale, cachectic appearing male in distress with nausea and abdominal pain. He arouses to voice and touch. Bitemporal wasting. EYES: conjunctiva normal ENT: Mucous membranes dry, and NG tube in right naris NECK: Some palpable lymphadenopathy in the cervical chain. LUNGS: Distant breath sounds CARDIOVASCULAR: RR without murmur or gallop. No significant edema. GI/ABD: Tender to palpation, and audible bowel sounds at the time of my exam NEURO: No focal deficits. SKIN: Pale HEME/LYMPH: no bruising, petechia MUSC: Extremities are normal in appearance. PSYCH/MENTAL STATUS: Alert and oriented x 3. A/P Assessment and Plan 66-year-old male with history of stage IV pancreatic cancer who presented with a week of vomiting and more recently bloody emesis. He remains tachycardic. Attending Attestation Patient seen and examined. Case reviewed and discussed with the resident team. Agree with plan of care as discussed with me and documented in the resident note. Problem List: (1) Intractable vomiting Status: Acute (2) Pancreatic cancer Status: Chronic (3) Upper GI bleed Status: Acute (4) Decreased oral intake Status: Acute (5) Anemia Status: Acute Problem Qualifiers (1) Intractable vomiting: Sandy Reed MD Nov 16, 2016 15:18
[2016-11-16] MEDS ORDERED: IOHEXOL 350 MG/ML 10 ML VIAL (for RAD DIAG) IV ONE (15:36)
--- NOTE | 2016-11-16 15:42 | RADRPT ---
EXAM DATE/TIME: 11/16/2016 15:22 [facility] COMPARISON: No previous studies available for comparison. INDICATIONS : Abdomen pain, evaluate for metastatic disease. IV CONTRAST: 92 cc Omnipaque 350 (iohexol) IV ORAL CONTRAST: No oral contrast ingested. RADIATION DOSE: 9.96 CTDIvol (mGy) MEDICAL HISTORY : Cardiovascular disease. Hypertension. Carcinoma, pancreas. SURGICAL HISTORY : None. ENCOUNTER: Initial ACUITY: 1 day PAIN SCALE: 5/10 LOCATION: abdomen TECHNIQUE: Volumetric scanning of the abdomen and pelvis was performed. Using automated exposure control and ad justment of the mA and/or kV according to patient size, radiation dose was kept as low as reasonably achievable to obtain optimal diagnostic quality images. FINDINGS: There is patchy airspace disease at both lung bases most characteristic of bronchopneumonia or aspira tion. NG tip is present in the stomach but the stomach remains markedly distended. There is pneumobilia within the liver, especially the left lobe with a stent in the common bile duct. The pancreatic body and tail appear somewhat atrophic. There are some cystic changes in the pancreat ic head. Spleen unremarkable. No focal renal or adrenal abnormalities. There is moderate ascites and diffuse moderate anasarca. There is colonic diverticulosis without defi nite evidence for diverticulitis. No small bowel obstruction. Extensive vascular calcifications noted . CONCLUSION: 1. Patchy basilar air space disease in the lungs most characteristic of bronchopneumonia or aspiratio n. 2. Markedly distended stomach mostly with fluid with NG present. Patency of NG tube should be checked . There may be a gastric outlet obstruction as well. 3. Biliary stent present with pneumobilia. Cystic changes in pancreatic head. 4. Moderate ascites and diffuse anasarca. 5. Colonic diverticulosis. Anthony Walker MD on November 16, 2016 at 15:33 Board Certified Radiologist. This report was verified electronically.
--- NOTE | 2016-11-16 15:50 | RADRPT ---
EXAM DATE/TIME: 11/16/2016 15:17 [facility] COMPARISON: No previous studies available for comparison. INDICATIONS : Evaluate for metastatic disease. IV CONTRAST: 92 cc Omnipaque 350 (iohexol) IV RADIATION DOSE: 12.97 CTDIvol (mGy) MEDICAL HISTORY : Cardiovascular disease. Hypertension. Carcinoma, pancreas. SURGICAL HISTORY : None. ENCOUNTER: Initial ACUITY: 1 day PAIN SCALE: 6/10 LOCATION: neck TECHNIQUE: Volumetric scanning of the neck was performed. Using automated exposure control and adjustment of th e mA and/or kV according to patient size, radiation dose was kept as low as reasonably achievable to obtain optimal diagnostic quality images. FINDINGS: There is mild to moderate anasarca in the soft tissues. No airway obstructing lesions present. Nasoga stric tube is noted. Esophagus is mildly dilated. No pathologically enlarged lymph nodes are seen wit hin the neck. There are bilateral carotid artery calcifications especially around bifurcation. No acu te bony abnormalities. CONCLUSION: 1. No adenopathy identified. Mild to moderate anasarca in the soft tissues. No acute bony abnormaliti es. 2. Patchy groundglass opacities in the lung apex. 3. Nasogastric tube present. Anthony Walker MD on November 16, 2016 at 15:43 Board Certified Radiologist. This report was verified electronically.
[2016-11-16] MEDS: HYDROmorphone HCL PF 1 MG/ML VIAL IV PUSH PRN (16:11)
[2016-11-16] MEDS ORDERED: FUROSEMIDE 40 MG/4 ML VIAL ONE (16:55)
[2016-11-16] MEDS ORDERED: FUROSEMIDE 40 MG/4 ML VIAL IV PUSH ONE (17:15)
[2016-11-16] MEDS ORDERED: DILTIAZEM HCL 25 MG/5 ML VIAL IV ONE (17:45)
[2016-11-16] MEDS ORDERED: cefTRIAXone INJ 1,000 MG in SODIUM CHLORIDE 0.9% INJ 100 ML IV SCH (18:00)
--- NOTE | 2016-11-16 18:01 | HHI.PR ---
Addendum to Inpatient Note Addendum Reason: Additional Documentation Additional Information S: Medical team notified of patient's increasing tachycardia to 160 bpm with dyspnea upon arrival to the [facility]. Upon arrival to the bedside, patient appears in acute distress. He is unable to converse and full sentences due to his dyspnea. He denies any blurred vision, headaches, or chest pain at this time. O: VITALS: 97.8 degrees, 160 bpm, 125/72, RR 46, 83% on 15L on non-rebreather GENERAL: Elderly cachectic patient currently in respiratory distress with increased work of breathing. SKIN: Cool and dry. Pale appearing. HEENT: Atraumatic, normocephalic with EOMI. PERRLA without injection or scleral icterus. Oropharynx clear without erythema or tonsillar exudates. Noted black residue on patient's tongue likely due to previous episodes of emesis. Mucous membranes dry. NG tube in place at right nares. No rhinorrhea. Palpable tender cervical lymphadenopathy bilaterally. CARDIOVASCULAR: Tachycardic to 160s. No MGR. RESPIRATORY: Diffuse crackles bilaterally at lung bases. Increased work of breathing with accessory muscle use and tripoding. GASTROINTESTINAL: Abdomen soft, mildly tender to palpation with positive bowel sounds. No masses appreciated. MUSCULOSKELETAL: Extremities without cyanosis or edema. No calf tenderness. NEUROLOGICAL: AAO x3. Patient unable to converse in full senses due to increased work of breathing. O: Mr. Ramsey is a 66 y/o CM with a PMHx of stage 4 pancreatic cancer, COPD, GERD and PTSD admitted for suspected upper GI bleed. Patient is currently being evaluated for likely fluid overload s/p blood transfusion leading to atrial fibrillation/flutter. P: CT neck and abdomen show groundglass opacities in lung apex with suspected bronchopneumonia or aspiration. Patient started on Ceftriaxone 1 g daily for antibiotic coverage. EKG: Atrial flutter with RVR. Rate 161 with prolonged QTC at 480. Chest x-ray: Bilateral mostly basilar airspace consolidation most characteristic of pneumonia or aspiration. NG and her stomach Lasix 40 mg IV push administered due to suspected pulmonary edema s/p blood transfusion Cardizem 5 mg IV push given and initiation of Cardizem drip per protocol for continued tachycardia into the 160s NG tube reevaluated, within normal limits Albumin 200 mg IV Discussed patient with cellar packer, Dr. Casarez, appreciate recommendations SDW: Dr. Sauer WDW: Markell Stallings MD R1 Nov 16, 2016 18:01
[2016-11-16 18:15] LABS: HEMATOCRIT 30.3 % (39.0-51.0); REVIEW FLAG FINAL
[2016-11-16 18:25] LABS: APTT (PATIENT) 31.5 SEC (24.3-30.1); INTERNATIONAL NORMALIZED RATIO 1.3 RATIO; PROTHROMBIN TIME - PATIENT 14.2 SEC (9.8-11.6)
[2016-11-16] MEDS ORDERED: ALBUMIN HUMAN 5% 25 GM/500 ML BOTTLE IV PRN (18:30)
--- NOTE | 2016-11-16 19:06 | RADRPT ---
EXAM DATE/TIME: 11/16/2016 17:43 [facility] COMPARISON: No previous studies available for comparison. INDICATIONS : Shortness of breath. MEDICAL HISTORY : Chronic obstructive pulmonary disease. SURGICAL HISTORY : None. ENCOUNTER: Initial ACUITY: 1 day PAIN SCORE: Non-responsive. LOCATION: Bilateral chest FINDINGS: A single view of the chest demonstrates bilateral mostly basilar airspace consolidation. No significa nt effusion. No pneumothorax. NG enters stomach. CONCLUSION: 1. Bilateral mostly basilar airspace consolidation most characteristic of pneumonia or aspiration. NG enters stomach. Anthony Walker MD on November 16, 2016 at 19:03 Board Certified Radiologist. This report was verified electronically.
[2016-11-16] MEDS ORDERED: DILTIAZEM INJ 125 MG in SODIUM CHLORIDE 0.9% INJ 100 ML IV SCH (20:00)
[2016-11-16] MEDS: PANTOPRAZOLE SODIUM 40 MG VIAL IV SCH (20:58)
[2016-11-16] MEDS ORDERED: FUROSEMIDE 40 MG/4 ML VIAL IV PUSH STA (20:59)
[2016-11-16] MEDS ORDERED: MOMETASONE INH SCH (21:00)
--- NOTE | 2016-11-16 21:07 | HHI.FPPN ---
Addendum to progress note ADDENDUM Reason for addendum: Additonal documentation Additional information Subjective: Received page as patient continues to be tachycardic and with a MAP of 64 despite treatment on Cardizem drip. Arrived at bedside were patient had BiPAP placed on which limited his ability to converse. Objective: VS: Pulse around 150s O2: 88 Cardiac: Increased rate but with regular rhythm Respiratory: Acute respiratory distress with BiPAP facemask on. Decreased air movement on left lower base. Coarse breath sounds bilaterally. A/P: 66-year-old male with a history of pancreatic cancer who was admitted for upper GI bleed. Developed acute respiratory distress from fluid overload after NS and blood transfusions. Initially had some improvement in respiratory status after IV Lasix 1. However patient continued to have increased pulse despite treatment with Cardizem drip. -Repeat 40mg Lasix IV 1 with simultaneous administration of albumin -Wean off Cardizem and transitioned to amiodarone -Continue with BiPAP to assist with desaturations -Re-discussed goals of care with patient who is okay with current management but continues to decline intubation and CPR -Discontinue losartan that is scheduled to start tomorrow morning -Plan discussed with nurse and with the community service manager Aspen Conklin Dr., MD R2 Nov 16, 2016 21:07
[2016-11-16] MEDS ORDERED: AMIODARONE INJ 150 MG in DEXTROSE 5% IN WATER 100ML INJ 97 ML IV ONE ×2 (21:15)
[2016-11-16] MEDS: AMIODARONE INJ 450 MG in DEXTROSE 5% IN WATE(EXCEL) INJ 241 ML IV SCH ×2 (22:13)
[2016-11-17] VITALS (7 sets, daily range): PULSE 128–136; RESP 21; O2SAT 96–98
[2016-11-17 00:59] LABS: HEMATOCRIT 26.1 % (39.0-51.0); REVIEW FLAG FINAL
[2016-11-17 03:31] LABS: AUTOMATED NEUTROPHIL # 2.4 TH/MM3 (1.8-7.7); BASOPHIL % 0.3 % (0.0-2.0); HEMATOCRIT 27.8 % (39.0-51.0); LYMPH % 6.3 % (9.0-44.0); LYMPHOCYTE # 0.2 TH/MM3 (1.0-4.8); MEAN CELL VOLUME 90.4 FL (80.0-100.0); MEAN CORPUSCULAR HEMOGLOBIN 31.3 PG (27.0-34.0); MEAN CORPUSCULAR HGB CONC 34.6 % (32.0-36.0); MONO % 1.8 % (0.0-8.0); NEUT % 91.6 % (16.0-70.0); PLATELET COUNT 116 TH/MM3 (150-450); RED BLOOD COUNT 3.07 MIL/MM3 (4.50-5.90); RED CELL DISTRIBUTION WIDTH 17.9 % (11.6-17.2); WHITE BLOOD COUNT 2.6 TH/MM3 (4.0-11.0)
[2016-11-17 04:06] LABS: ALKALINE PHOSPHATASE 79 U/L (45-117); ALT (GPT) 12 U/L (12-78); ANION GAP 8 MEQ/L (5-15); AST (GOT) 25 U/L (15-37); BICARBONATE 35.2 MEQ/L (21.0-32.0); BLOOD UREA NITROGEN 45 MG/DL (7-18); CHLORIDE 100 MEQ/L (98-107); GLOMERULAR FILTRATION RATE 57 ML/MIN (>89); POTASSIUM 3.7 MEQ/L (3.5-5.1); SODIUM (NA) 143 MEQ/L (136-145); TOTAL BILIRUBIN ADULT 1.7 MG/DL (0.2-1.0)
[2016-11-17 04:10] LABS: HEMO FLAGS AUTO DIFF
[2016-11-17 04:24] LABS: BANDS 21 % (0-6); BLASTS 1 % (0-0); CORRECTED NUCLEATED RBC 1 /100 WBC (0-0); METAMYELOCYTES 51 % (0-1); MYELOCYTES 10 % (0-0); NEUTROPHIL # MANUAL DIFF 2.3 TH/MM3 (1.8-7.7); POLYS (SEG NEUTROPHILS) 4 % (16-70); PROMYELOCYTES 2 % (0-0); SCAN/DIFF FINAL DIFF MANUAL; WBC DIFF SAMPLE 100
[2016-11-17 04:26] LABS: OVALOCYTES 1+ (NORMAL); PLATELET ESTIMATE SMEAR LOW (NORMAL); PLATELET MORPHOLOGY NORMAL (NORMAL); STOMATOCYTES 1+ (NORMAL)
[2016-11-17 04:27] LABS: TOXIC GRANULATION 1+ (NORMAL)
[2016-11-17] MEDS: HYDROmorphone HCL PF 1 MG/ML VIAL IV PUSH PRN (07:30)
[2016-11-17] MEDS: AMIODARONE INJ 450 MG in DEXTROSE 5% IN WATE(EXCEL) INJ 241 ML IV SCH ×2 (08:00)
[2016-11-17] MEDS ORDERED: CLINDAMYCIN INJ 600 MG in SODIUM CHLORIDE 0.9% INJ 100 ML IV SCH ×2 (08:30→09:00)
[2016-11-17] MEDS: SODIUM CHLORIDE 0.9% FLUSH 5 ML FLUSH FLUSH SCH (09:00)
[2016-11-17] MEDS: PANTOPRAZOLE SODIUM 40 MG VIAL IV SCH (09:00)
[2016-11-17] MEDS ORDERED: LOSARTAN 50 MG TAB PO SCH (09:00)
[2016-11-17] MEDS ORDERED: HYDROmorphone HCL PF 2 MG/ML VIAL IV PUSH PRN (09:00)
[2016-11-17] MEDS ORDERED: PAROXETINE PO SCH (09:00)
[2016-11-17] MEDS ORDERED: FOLIC ACID 1 MG TAB PO SCH (09:00)
--- NOTE | 2016-11-17 12:52 | HHI.GIFU ---
Subjective Remarks Pt on nonrebreather. Pt and family have decided on Hospice care and he is scheduled to go to the care center at 1pm today. Objective Vitals I&O Vital Signs Date Time Temp Pulse Resp B/P Pulse Ox O2 Delivery O2 Flow Rate FiO2 11/17/16 08:00 Non-Rebreather 11/17/16 08:00 21 11/17/16 06:00 128 11/17/16 04:29 96 50 11/17/16 04:00 132 11/17/16 02:00 128 11/17/16 01:10 98 50 11/17/16 00:00 136 11/16/16 22:20 97 70 11/16/16 22:00 142 11/16/16 21:05 Bi-Pap 40 11/16/16 20:50 89 100 11/16/16 20:50 86 Non-Rebreather 15.00 11/16/16 20:00 156 24 85/58 85 11/16/16 20:00 156 11/16/16 19:50 98.0 11/16/16 19:00 Partial Non-Rebreather 15.00 Nasal Cannula Humidified 11/16/16 18:00 149 11/16/16 18:00 149 22 87/55 88 11/16/16 17:00 168 40 117/74 82 11/16/16 16:30 97.8 169 45 127/76 75 11/16/16 16:00 162 20 128/80 92 Nasal Cannula 3 11/16/16 15:00 138 20 128/82 98 Room Air 11/16/16 14:30 138 21 127/82 92 Nasal Cannula 2 11/16/16 14:00 130 22 122/88 92 Nasal Cannula 2 11/16/16 13:31 98.8 133 20 140/88 92 11/16/16 13:30 98.8 134 21 140/88 91 Nasal Cannula 2 11/16/16 13:08 98.8 133 20 124/88 92 Room Air 2 11/16/16 13:08 98.8 134 124/88 91 Room Air 2 I/O 11/16/16 11/16/16 11/16/16 11/17/16 11/17/16 11/17/16 07:00 15:00 23:00 07:00 15:00 23:00 Intake Total 500 ml 255 ml 194 ml Output Total 2450 ml 350 ml 125 ml Balance -1950 ml -95 ml 69 ml Intake IV Total 255 ml 194 ml Packed Cells 500 ml Output Urine Total 350 ml 125 ml Gastric Drainage Total 2150 ml Emesis 300 ml Laboratory Laboratory Tests Test 11/16/16 11/17/16 11/17/16 17:58 00:36 03:20 Hemoglobin 10.4 9.1 9.6 Hematocrit 30.3 26.1 27.8 Prothrombin Time 14.2 Prothromb Time International 1.3 Ratio Activated Partial 31.5 Thromboplast Time Troponin I 0.09 0.14 White Blood Count 2.6 Red Blood Count 3.07 Mean Corpuscular Volume 90.4 Mean Corpuscular Hemoglobin 31.3 Mean Corpuscular Hemoglobin 34.6 Concent Red Cell Distribution Width 17.9 Platelet Count 116 Mean Platelet Volume 8.8 Neutrophils (%) (Auto) 91.6 Lymphocytes (%) (Auto) 6.3 Monocytes (%) (Auto) 1.8 Eosinophils (%) (Auto) 0.0 Basophils (%) (Auto) 0.3 Neutrophils # (Auto) 2.4 Lymphocytes # (Auto) 0.2 Monocytes # (Auto) 0.0 Eosinophils # (Auto) 0.0 Basophils # (Auto) 0.0 CBC Comment AUTO DIFF Differential Total Cells 100 Counted Neutrophils % (Manual) 4 Band Neutrophils % 21 Lymphocytes % 7 Monocytes % 4 Neutrophils # (Manual) 2.3 Metamyelocytes 51 Myelocytes 10 Promyelocytes 2 Nucleated Red Blood Cells 1 Differential Comment FINAL DIFF MANUAL Blastocytes 1 Toxic Granulation 1+ Platelet Estimate LOW Platelet Morphology Comment NORMAL Ovalocytes 1+ Stomatocytes 1+ Sodium Level 143 Potassium Level 3.7 Chloride Level 100 Carbon Dioxide Level 35.2 Anion Gap 8 Blood Urea Nitrogen 45 Creatinine 1.27 Estimat Glomerular Filtration 57 Rate Random Glucose 115 Calcium Level 7.8 Total Bilirubin 1.7 Aspartate Amino Transf 25 (AST/SGOT) Alanine Aminotransferase 12 (ALT/SGPT) Alkaline Phosphatase 79 Total Protein 5.1 Albumin 2.6 Imaging Last Impressions Chest X-Ray 11/16/1635 Signed Impressions: Service Date/Time: Wednesday, November 16, 2016 08:03 - CONCLUSION: No acute cardiopulmonary disease identified. Sae Griffith MD Abdomen X-Ray 11/16/1646 Signed Impressions: Service Date/Time: Wednesday, November 16, 2016 08:05 - CONCLUSION: No evidence of free air. Sae Griffith MD Neck CT 11/16/16 0000 Signed Impressions: Service Date/Time: Wednesday, November 16, 2016 15:17 - CONCLUSION: 1. No adenopathy identified. Mild to moderate anasarca in the soft tissues. No acute bony abnormalities. 2. Patchy groundglass opacities in the lung apex. 3. Nasogastric tube present. Anthony Walker MD Abdomen/Pelvis CT 11/16/16 0000 Signed Impressions: Service Date/Time: Wednesday, November 16, 2016 15:22 - CONCLUSION: 1. Patchy basilar air space disease in the lungs most characteristic of bronchopneumonia or aspiration. 2. Markedly distended stomach mostly with fluid with NG present. Patency of NG tube should be checked. There may be a gastric outlet obstruction as well. 3. Biliary stent present with pneumobilia. Cystic changes in pancreatic head. 4. Moderate ascites and diffuse anasarca. 5. Colonic diverticulosis. Anthony Walker MD Physical Exam HEENT: Normocephalic; atraumatic; no jaundice. CHEST: Resp shallow, labored. Diminished, scattered rhonchi, NRB CARDIAC: Regular, tachycardic ABDOMEN: Soft, nondistended, nontender; no hepatosplenomegaly; bowel sounds are present in all four quadrants. EXTREMITIES: No clubbing, cyanosis, or edema. SKIN: Generalized pallor SERVICE CENTER TECHNICIAN: Lethargic. Assessment and Plan Plan ASSESSMENT: - GIB, Coffee ground gastric secretions. Pt's reports that he has been vomiting for several weeks, but that he recently started having the coffee ground emesis about 1 week ago. NGT was placed to LIWS, 2L of blackish colored gastric secretions out. HH 8.8/26.4. Getting 2 units of PRBC. Protonix with BID dosing. Pt with advanced pancreatic cancer, respiratory distress. Family has decided on comfort measures/hospice care and he is scheduled to be transferred at 1pm. - Anemia, acute blood loss. HH 9.6/27.8. S/P 2 units PRBC. - Advanced pancreatic cancer. Dx in 2014. Followed by Dr[address] Kelly. The family reports that he completed 28 treatments of radiation. He was receiving chemotherapy up until 3 weeks ago. His family reports that he was taken off chemotherapy 3 weeks ago and the plan was to "see how he did." Patient's and daughter report that Hospice was recommended last week, but when they came they said that they could not give blood and therefore they decided to send him to the hospital. However, they state that if anything were to happen as far as if his heart were to stop beating or if he stopped breathing, they WOULD NOT WANT CPR or INTUBATION WITH MECHANICAL VENTILATION - notified attending. - COPD, PTSD, per primary PLAN: - Pt and family decided on comfort measures and is being [facility] - GI will sign off, please reconsult as needed - Pt seen and examined by Dr. Lombardi and myself and this note is written on his behalf Marielos Leung Nov 17, 2016 12:52
--- NOTE | 2016-11-17 14:09 | HHI.FPPN ---
Subjective Remarks Patient seen and examined by medical team this morning. Please see both patient addendums for acute events overnight. This morning he continues to have dyspnea with oxygen saturations in the lower to mid 90s while on BiPap. His heart rate remains elevated to low 100s while on amiodarone drip, but is currently in the 130s during our interview. His blood pressure is currently 102/67. He does endorse continued ABD, but is unable to describe it or any other symptoms currently due to his dyspnea. His and step-daughter are at the bedside. Due to his continued discomfort and poor prognosis, the Medical team had a thorough discussion on goals of care. Prior to admission he was enrolled in home hospice with [facility]. After discussing the severity of his condition and their goals of care, it was agreed upon that Hospice should be consulted. Initially the family desired to stay in the hospital for his hospice care, however after returning to discuss his hospice care options, they all agreed that the [facility] would be best for his care. (Markell Monahan MD R1) Objective Vitals Vital Signs Date Time Temp Pulse Resp B/P Pulse Ox O2 Delivery O2 Flow Rate FiO2 11/17/16 08:00 Non-Rebreather 11/17/16 08:00 21 11/17/16 06:00 128 11/17/16 04:29 96 50 11/17/16 04:00 132 11/17/16 02:00 128 11/17/16 01:10 98 50 11/17/16 00:00 136 11/16/16 22:20 97 70 11/16/16 22:00 142 11/16/16 21:05 Bi-Pap 40 11/16/16 20:50 89 100 11/16/16 20:50 86 Non-Rebreather 15.00 11/16/16 20:00 156 24 85/58 85 11/16/16 20:00 156 11/16/16 19:50 98.0 11/16/16 19:00 Partial Non-Rebreather 15.00 Nasal Cannula Humidified 11/16/16 18:00 149 11/16/16 18:00 149 22 87/55 88 11/16/16 17:00 168 40 117/74 82 11/16/16 16:30 97.8 169 45 127/76 75 11/16/16 16:00 162 20 128/80 92 Nasal Cannula 3 11/16/16 15:00 138 20 128/82 98 Room Air 11/16/16 14:30 138 21 127/82 92 Nasal Cannula 2 I/O 11/16/16 11/16/16 11/16/16 11/17/16 11/17/16 11/17/16 07:00 15:00 23:00 07:00 15:00 23:00 Intake Total 500 ml 255 ml 194 ml Output Total 2450 ml 350 ml 125 ml Balance -1950 ml -95 ml 69 ml Intake IV Total 255 ml 194 ml Packed Cells 500 ml Output Urine Total 350 ml 125 ml Gastric Drainage Total 2150 ml Emesis 300 ml (Markell Monahan MD R1) Result Diagram: 11/17/16 0320 11/17/16 0320 Imaging Last 72 hours Impressions Chest X-Ray 11/16/16 0735 Signed Impressions: Service Date/Time: Wednesday, November 16, 2016 08:03 - CONCLUSION: No acute cardiopulmonary disease identified. Sae Griffith MD Abdomen X-Ray 11/16/16 0735 Signed Impressions: Service Date/Time: Wednesday, November 16, 2016 08:05 - CONCLUSION: No evidence of free air. Sae Griffith MD Neck CT 11/16/16 0000 Signed Impressions: Service Date/Time: Wednesday, November 16, 2016 15:17 - CONCLUSION: 1. No adenopathy identified. Mild to moderate anasarca in the soft tissues. No acute bony abnormalities. 2. Patchy groundglass opacities in the lung apex. 3. Nasogastric tube present. Anthony Walker MD Chest X-Ray 11/16/16 0000 Signed Impressions: Service Date/Time: Wednesday, November 16, 2016 17:43 - CONCLUSION: 1. Bilateral mostly basilar airspace consolidation most characteristic of pneumonia or aspiration. NG enters stomach. Anthony Walker MD Abdomen/Pelvis CT 11/16/16 0000 Signed Impressions: Service Date/Time: Wednesday, November 16, 2016 15:22 - CONCLUSION: 1. Patchy basilar air space disease in the lungs most characteristic of bronchopneumonia or aspiration. 2. Markedly distended stomach mostly with fluid with NG present. Patency of NG tube should be checked. There may be a gastric outlet obstruction as well. 3. Biliary stent present with pneumobilia. Cystic changes in pancreatic head. 4. Moderate ascites and diffuse anasarca. 5. Colonic diverticulosis. Anthony Walker MD Objective Remarks GENERAL: Elderly cachectic patient currently in severe respiratory distress currently on BiPap with NG tube placed. SKIN: Cool and dry. Pale appearing. HEENT: Atraumatic, normocephalic with EOMI. Mucous membranes dry. NG tube in place at right nares. No rhinorrhea. Palpable tender cervical lymphadenopathy bilaterally. CARDIOVASCULAR: Tachycardic to 130s. No MGR. RESPIRATORY: Diffuse crackles bilaterally at lung bases. Increased work of breathing with accessory muscle use and tripoding. GASTROINTESTINAL: Abdomen soft, tender to palpation with positive bowel sounds. No masses appreciated. MUSCULOSKELETAL: Extremities without cyanosis or edema. No calf tenderness. NEUROLOGICAL: AAO x3. Patient unable to converse due to increased work of breathing. (Markell Monahan MD R1) A/P Assessment and Plan Mr. Ramsey is a 66 y/o CM with a PMHx of stage 4 pancreatic cancer, COPD, GERD and PTSD admitted for suspected upper GI bleed. Discharge Planning [facility] (Markell Monahan MD R1) Attending Attestation Patient seen and examined. Case reviewed and discussed with the resident team. Agree with plan of care as discussed with me and documented in the resident note. (Sandy Reed MD) Problem List: (1) Upper GI bleed Status: Acute Plan: Patient admitted for suspected GI bleed after multiple episodes of bloody coffee-ground emesis leading to symptomatic anemia. Patient received 2 units of transfused packed red blood cells at admission. Due to worsening condition and poor prognosis, the patient and his family has decided to be transferred to hospice for further care. Hospice has been consulted and will accept the patient. He will be discharged today to the [facility]. Supportive care to be administered at this time as patient will be transferred to hospice Hospice consulted, orders placed for discharge (2) Intractable vomiting Status: Acute Plan: Please see plan as above (3) Decreased oral intake Status: Acute Plan: Please see plan as above (4) Anemia Status: Acute Plan: Please see plan as above (5) Pancreatic cancer Status: Chronic Plan: Patient was diagnosed stage IV pancreatic cancer complaining of neck and abdominal pain with palpable cervical lymphadenopathy. Currently he has chemotherapy has been discontinued with his last treatment approximately 3 weeks ago. He has completed 28 radiation treatments over one year ago. His oncologist is Dr. Kelly. Patient to be discharged for hospice for further management and pain control (6) COPD (chronic obstructive pulmonary disease) Status: Chronic Plan: Patient with diagnosis of COPD Please see plan as above (7) GERD (gastroesophageal reflux disease) Status: Acute Plan: Patient with history of GERD Please see plan as above (8) Nutrition, metabolism, and development symptoms Status: Acute Plan: Fluids: Normal saline at 100 mL/h (maintenance fluids) post-transfusion as he is NPO and appears dehydrated Diet: NPO DVT prophylaxis: SCD/TEDs as medical prophylaxis appropriate with GI bleed Electrolytes: Continue to monitor (Markell Monahan MD R1) Problem Qualifiers (1) Intractable vomiting: Markell Monahan MD R1 Nov 17, 2016 14:09 Sandy Reed MD Nov 17, 2016 15:34
--- NOTE | 2016-11-17 14:30 | EKG ---
Date Performed: 11/16/2016 Time Performed: 16:49:37 PTAGE: 66 years EKG: ATRIAL FLUTTER/TACHYCARDIA WITH RAPID VENTRICULAR RESPONSE MARKED LEFT AXIS DEVIATION LEFT BUNDLE BRANCH BLOCK ABNORMAL ECG PREVIOUS TRACING : 11/16/2016 07.23 DOCTOR: Jone Thornton Interpretating Date/Time 11/17/2016 14:27:49
--- NOTE | 2016-11-17 14:45 | EKG ---
Date Performed: 11/16/2016 Time Performed: 07:23:43 PTAGE: 66 years EKG: SINUS TACHYCARDIA, POSSIBLE ATRIAL FLUTTER MARKED LEFT AXIS DEVIATION LEFT BUNDLE BRANCH BL OCK ABNORMAL ECG PREVIOUS TRACING : 07/02/2015 13.55 DOCTOR: Jone Thornton Interpretating Date/Time 11/17/2016 14:38:12
== END 2016-11-17 13:30 | disposition hospice, inpatient (51) | DRG 378 ==
LOC: NEPE 07:13 → NEDA 10:03 → HIMN 16:20
PROVIDERS: ADMIT Family Medicine; ATTEND Family Medicine
PROC: 30233N1 Transfusion of Nonautologous Red Blood Cells into Peripheral Vein, Percutaneous Approach (ICD-10-PCS; principal; 2016-11-16)
PROC: 5A09357 Assistance with Respiratory Ventilation, Less than 24 Consecutive Hours, Continuous Positive Airway Pressure (ICD-10-PCS; 2016-11-16)
DX: K92.0 Hematemesis (principal); R64 Cachexia; C25.9 Malignant neoplasm of pancreas, unspecified; E87.70 Fluid overload, unspecified; E86.0 Dehydration; I10 Essential (primary) hypertension; D62 Acute posthemorrhagic anemia; J44.9 Chronic obstructive pulmonary disease, unspecified; K21.9 Gastro-esophageal reflux disease without esophagitis; Z92.21 Personal history of antineoplastic chemotherapy; Z92.3 Personal history of irradiation; F43.10 Post-traumatic stress disorder, unspecified; Z72.0 Tobacco use; Z85.828 Personal history of other malignant neoplasm of skin; Z87.11 Personal history of peptic ulcer disease; Z66 Do not resuscitate; Z82.49 Family history of ischemic heart disease and other diseases of the circulatory system; Z80.0 Family history of malignant neoplasm of digestive organs; G89.3 Neoplasm related pain (acute) (chronic); R10.9 Unspecified abdominal pain; Z51.5 Encounter for palliative care; R59.1 Generalized enlarged lymph nodes
CPT/HCPCS: 36430; 70491; 71010; 74000; 74177; 80053; 83690; 84484; 85007; 85014; 85018; 85025; 85027; 85610; 85730; 86850; 86900; 86901; 86920; 93005; 94002; 94003; 96361; 96374; 96375; C9113; J0282; J0696; J1170; J1940; J2405; J7030; J7060; P9016; P9045; Q9967